=== PATIENT | female | born 1950 | race Caucasian/White ===

== ENCOUNTER 2022-03-03 07:16 | Outpatient (CLI) | payer MEDICARE, SELFPAY ==
--- NOTE | ~2022-03-03 | CT_ITS ---
Noncontrast CT scan of the left knee CLINICAL HISTORY: Preoperative planning for joint replacement, arthritis TECHNIQUE: Axial noncontrast imaging of the left knee was performed. Sagittal and coronal reformatted images were constructed. Dose reduction technique was used on this scan by utilizing automated expos ure control and iterative reconstruction technique. FINDINGS: No fracture or dislocation seen. There is severe medial compartment osteophytes, joint spac e narrowing, reactive sclerosis, and subchondral cystic change in the medial femoral condyle and medi al tibial plateau region. Prominent medial joint line osteophytes are present, with additional osteop hytes at the medial aspect of the intercondylar notch. Lateral compartment joint spaces relatively we ll-preserved, with osteophyte formation at the lateral joint line and the lateral margin of the inter condylar notch. There is mild patellofemoral spurring. There is a large ossified intra-articular loos e body in the suprapatellar pouch, measuring 2.5 cm in maximum diameter. Minimal joint effusion present. Small Thorpe cyst present. Visualized musculature unremarkable. Mild to moderate degenerative change at the posterior aspect of the left hip joint noted. Left ankle joint appears unremarkable. IMPRESSION: Tricompartmental osteoarthritis of the left knee, as detailed above. There is severe degenerative benjie nge of the medial compartment, and moderate degenerative change of the lateral and patellofemoral com partment. Large intra-articular loose body at the suprapatellar pouch, as detailed above. Minimal joint effusion and small Thorpe's cyst. Reviewed, dictated and finalized at [facility]. OPERATOR IMPRESSION: Tricompartmental osteoarthritis of the left knee, as detailed above. There is s evere degenerative change of the medial compartment, and moderate degenerative change of the lateral and patellofemoral compartment. Large intra-articular loose body at the suprapatellar pouch, as detailed above. Minimal joint effusion and small Thorpe's cyst.
[2022-03-03 08:41] LABS: Hematocrit 43.6 % (37.0-47.0); Hemoglobin 14.3 g/dL (12.0-15.0)
--- NOTE | 2022-03-03 08:58 | ECG_ITS ---
Measurements Intervals [place] Rate: 45 P: 42 DC: 178 QRS: -15 QRSD: 82 T: -1 QT: 423 QTc: 367 Interpretive Statements SINUS BRADYCARDIA LOW QRS VOLTAGE IN PRECORDIAL LEADS BORDERLINE T WAVE ABNORMALITY- INFERIOR LEADS ABNORMAL ECG NO PREVIOUS ECG AVAILABLE FOR COMPARISON Electronically Signed On 03-03-2022 10:09:29 QUALITY CONTROL LAB TECH by Sheldon Hensley D.O.
[2022-03-03 09:11] LABS: Albumin Level 4.6 g/dL (3.5-5.1); Estimated Glomerular Filt Rate > 60; Glucose 101 mg/dL (65-110)
[2022-03-03 10:38] LABS: Hemoglobin A1C 5.8 % (<5.7)
[2022-03-03 18:12] LABS: Urine Cotinine NEGATIVE
== END 2022-03-03 07:17 | disposition home or self-care (01) ==
PROVIDERS: PCP Internal Medicine; Visit Provider Orthopaedic Surgery
DX: M17.12 Unilateral primary osteoarthritis, left knee (principal); I10 Essential (primary) hypertension; R00.1 Bradycardia, unspecified
CPT/HCPCS: 73700; 80307; 82040; 82565; 82947; 83036; 85014; 85018; 93005

== ENCOUNTER 2022-05-04 11:36 | Outpatient (CLI) | payer MEDICARE, SELFPAY ==
[2022-05-04 13:16] LABS: Basophils Percent Auto 0.5 % (0.2-1.2); Eosinophils Absolute Auto 0.3 K/mm3 (0-0.3); Eosinophils Percent Auto 4.8 % (0-4.4); Hematocrit 44.4 % (37.0-47.0); Hemoglobin 14.3 g/dL (12.0-15.0); Immature Granulocyte Absolute 0.02 K/mm3 (0.00-0.031); Immature Granulocyte Percent A 0.3 % (0-0.5); Lymphocytes Absolute Auto 1.77 K/mm3 (0.9-3.2); Lymphocytes Percent Auto 30.4 % (18.3-44.2); Mean Corpuscular HGB Conc 32.2 g/dl (32-36); Mean Corpuscular Hemoglobin 30.5 pg (26-34); Mean Corpuscular Volume 94.7 fl (80-100); Mean Platelet Volume 11.1 fl (7.4-10.4); Monocytes Absolute Auto 0.5 K/mm3 (0.1-0.6); Monocytes Percent Auto 8.9 % (2.6-8.5); Neutrophils Absolute Auto 3.2 K/mm3 (1.3-6.7); Neutrophils Percent Auto 55.1 % (45.5-73.1); Platelet Count Result 231 k/mm3 (150-375); Red Blood Count 4.69 M/mm3 (4.2-5.4); Red Cell Distribution Width 13.9 % (11.5-14.5); White Blood Count 5.8 K/mm3 (4.5-10.0)
[2022-05-04 13:34] LABS: Albumin Level 4.7 g/dL (3.5-5.1)
[2022-05-04 13:35] LABS: Anion Gap 7 mmol/L (8-16); Blood Urea Nitrogen 24 mg/dL (7-17); Calcium 9.4 mg/dL (8.4-10.2); Carbon Dioxide 31 mmol/L (22-30); Chloride 102 mmol/L (98-107); Estimated Glomerular Filt Rate > 60; Glucose 93 mg/dL (65-110); Potassium 4.9 mmol/L (3.4-5.0); Sodium 140 mmol/L (137-145)
[2022-05-04 13:39] LABS: Urine Cotinine NEGATIVE
== END 2022-05-04 11:37 | disposition home or self-care (01) ==
LOC: ANHSURGERY 11:42
PROVIDERS: Anesthesiology; PCP Internal Medicine; Visit Provider Orthopaedic Surgery
DX: Z01.812 Encounter for preprocedural laboratory examination (principal); M17.12 Unilateral primary osteoarthritis, left knee; Z51.81 Encounter for therapeutic drug level monitoring
CPT/HCPCS: 36415; 80048; 80307; 82040; 85025; 87081

== ENCOUNTER 2022-05-30 00:17 | Day surgery (SDC) | payer MEDICARE, SELFPAY ==
[2022-05-04 12:09] VITALS: BP 129/76; PULSE 51; RESP 16; TEMP 37.2; O2SAT 98; BMI 33.7
--- NOTE | 2022-05-04 12:20 | PC.NURSE ---
Report to the Outpatient Waiting Room, entrance under the green pavilion located off [facility], at time _11:30AM on date ___05/23/22____. Planned Procedure Time: __1:30PM . Time changes happen often and if your time is changed the preop area will call you the afternoon before. - You and your visitor will be asked to self-screen and do not enter if you have any COVID symptoms. - Only one visitor is requested with a max of two and NO children visitors are allowed at this time. - The patient visitor may be requested to leave or wait in car when not with patient due to distancing restrictions. - A mask is optional within the hospital at this time. Patients may have clear liquids (water, carbonated beverages, clear teas, apple juice) until 3 hours prior to surgery with a maximum of 20 ounces. - No food from midnight until time of surgery Take the following medications with a SIP of water the morning of surgery: ___CITALOPRAM DO NOT STOP ANY OF YOUR OTHER PRESCRIPTION MEDICATIONS PRIOR TO SURGERY ?EXCEPT THE FOLLOWING Medications to discontinue per physician ___HOLD ALL VITAMINS/SUPPLEMENTS AND ALL NSAIDS(IBUPROFEN & ALEVE) 7 DAYS PRE-OP Date to take last dose___05/16/22 Please no make-up, nail croatian, hairspray, perfume, deodorant, or body powder the day of surgery. No jewelry (including any body piercings) or valuables the day of surgery, leave them at home. Please take a shower or bath the night before, or the morning of, surgery with an antibacterial soap. Wear comfortable, loose fitting clothing. Children are encouraged to wear pajamas. - Jewelry must be removed prior to entering the operating room. Rings and piercings that are not removed may be cut off. - The hospital will not accept responsibility for valuables. - Please leave all valuables, including medications, at home the day of surgery. If you are going home after surgery, a licensed funeral limousine driver must drive you home. - NO public transportation without another adult if you receive anesthesia. - We recommend that an adult stay with you for 24 hours following discharge. - We also recommend that you do not drive, make important decision, drink alcoholic beverages, or take any drugs that were not prescribed by your health care provider for at least 24 hours after your discharge time. Follow any additional instructions given to you from your surgeon. If you or anyone in your household have experienced Covid symptoms in the past week, please notify your surgeon or the nurse liaison at the phone number below for possible testing. Telephone instructions given to __PATIENT and asked if any additional questions and then verbalized understanding. Patient advised to call surgeon office or pre surgery nurse liaison [phone] if any additional questions.
--- NOTE | 2022-05-18 12:33 | PC.NURSE ---
Report to the Outpatient Waiting Room, entrance under the green pavilion located off [address], at time __8:30AM on date _05/30/22 . Planned Procedure Time: __10:30AM . NEW DATE/TIME- PATIENT RELAYS UNDERSTANDING Time changes happen often and if your time is changed the preop area will call you the afternoon before. - You and your visitor will be asked to self-screen and do not enter if you have any COVID symptoms. - Only one visitor is requested with a max of two and NO children visitors are allowed at this time. - The patient visitor may be requested to leave or wait in car when not with patient due to distancing restrictions. - A mask is optional within the hospital at this time. Patients may have clear liquids (water, carbonated beverages, clear teas, apple juice) until 3 hours prior to surgery with a maximum of 20 ounces. - No food from midnight until time of surgery Take the following medications with a SIP of water the morning of surgery: __CITALOPRAM DO NOT STOP ANY OF YOUR OTHER PRESCRIPTION MEDICATIONS PRIOR TO SURGERY ?EXCEPT THE FOLLOWING Medications to discontinue per physician __HOLD ALL VITAMINS/SUPPLEMENTS AND NSAIDS(IBUPROFEN & ALEVE) FOR 7 DAYS PRE-OP PER DR MONSON(PER PATIENT) Date to take last dose____05/23/22 Please no make-up, nail kinyarwanda, hairspray, perfume, deodorant, or body powder the day of surgery. No jewelry (including any body piercings) or valuables the day of surgery, leave them at home. Please take a shower or bath the night before, or the morning of, surgery with an antibacterial soap. Wear comfortable, loose fitting clothing. Children are encouraged to wear pajamas. - Jewelry must be removed prior to entering the operating room. Rings and piercings that are not removed may be cut off. - The hospital will not accept responsibility for valuables. - Please leave all valuables, including medications, at home the day of surgery. If you are going home after surgery, a licensed cat driver must drive you home. - NO public transportation without another adult if you receive anesthesia. - We recommend that an adult stay with you for 24 hours following discharge. - We also recommend that you do not drive, make important decision, drink alcoholic beverages, or take any drugs that were not prescribed by your health care provider for at least 24 hours after your discharge time. Follow any additional instructions given to you from your surgeon. If you or anyone in your household have experienced Covid symptoms in the past week, please notify your surgeon or the nurse liaison at the phone number below for possible testing. Telephone instructions given to __PATIENT and asked if any additional questions and then verbalized understanding. Patient advised to call surgeon office or pre surgery nurse liaison [phone] if any additional questions.
[2022-05-30] VITALS (10 sets, daily range): BP systolic 117–168; BP diastolic 54–86; PULSE 57–94; RESP 12–20; TEMP 36.4–37; O2SAT 96–100
--- NOTE | ~2022-05-30 | XR_ITS ---
EXAMINATION: [id number] DATE: 05/30/2022 14:18 INDICATION: Postoperative evaluation following left total knee arthroplasty. TECHNIQUE: Anteroposterior and lateral views of the left knee were obtained. COMPARISON: None. FINDINGS: Left total knee arthroplasty with patellar resurfacing appears well seated and in near anatomic align ment. No fractures identified. Expected postoperative subcutaneous and intra-articular gas. IMPRESSION: 1. Left total knee arthroplasty, negative for postoperative purposes. Reviewed, dictated and finalized at location A.
--- NOTE | 2022-05-30 07:30 | WPDHPUPDATE1 ---
History and Physical Update Update Date/Time: 05/30/22 07:30 History and Physical has been reviewed, including an updated exam of the patient. There are NO changes in the patient's condition. Risks, benefits, and alternatives have been discussed and questions answered. Patient agrees to proceed with procedure.
--- NOTE | 2022-05-30 08:58 | WPDANESEPPF ---
Anes - Initial Pre Proc Eval Procedure: Operation Date: 05/30/22 10:30 Proposed Procedures p Left Custom Total Knee Arthroplasty - Santy Salcido MD Date/Time: 05/30/22 08:58 Surgeon: Santy Salcido MD Pre Op Diagnosis: primary OA left knee Patient Data Age: 71 Gender: F Height: 1.65 m Weight: 90.7 kg Last Vital Signs Temp 37.2 C 05/04/22 12:09 Pulse 51 L 05/04/22 12:09 Resp 16 05/04/22 12:09 BP 129/76 05/04/22 12:09 Pulse Ox 98 05/04/22 12:09 O2 Del Method Room Air 05/04/22 12:09 Allergies Allergy/AdvReac Type Severity Reaction Status Date / Time No Known Allergies Allergy Unverified 05/30/22 08:42 Home Medications Medication Instructions Recorded Confirmed Type citalopram 10 mg tablet 10 mg PO QAM 01/02/22 05/30/22 History losartan 50 mg tablet 50 mg PO QPM 01/02/22 05/30/22 History triamterene 37.5 1 cap PO DAILY 01/02/22 05/30/22 History mg-hydrochlorothiazide 25 mg capsule biotin 5,000 mcg-lutein 10 mg 1 tablet PO BID 05/04/22 05/30/22 History tablet (Biotin Plus) cholecalciferol (vitamin D3) 10 10 mcg PO BID 05/04/22 05/30/22 History mcg (400 unit) capsule cyclosporine 0.05 % eye drops 1 drp EACH EYE Q12H 05/04/22 05/30/22 History (Restasis MultiDose) ibuprofen 200 mg capsule 400 mg PO Q6H PRN Pain 05/04/22 05/30/22 History multivitamin with iron (Daily 1 tablet PO DAILY 05/04/22 05/30/22 History Multiple Vitamins with Iron tablet) naproxen sodium 220 mg capsule 440 mg PO BID PRN Pain 05/04/22 05/30/22 History (Aleve) vitamin C 30 mg-zinc citrate 1.1 1 tablet PO BID 05/04/22 05/30/22 History mg-elderberry 25 mg chewable tablet (Sambucus Elderberry) aspirin 81 mg tablet,delayed 81 mg PO BID 14 days #28 tabs 05/30/22 Rx release oxycodone-acetaminophen 5 mg-325 1 - 2 tablet PO Q4-6H PRN pain #30 05/30/22 Rx mg tablet tabs prednisone 5 mg tablet 5 mg PO DAILY 3 weeks #21 tabs 05/30/22 Rx Patient hx anesthesia problems: none Family hx anesthesia problems: none Results Review: All pre-operative results and documents have been reviewed as part of the pre-operative evaluation. [facility] Past Medical History Medical History (Updated 05/30/22 @ 09:01 by Declan Carpenter DO) Anxiety History of fracture of patella (~2020) Rt - Treated w/Long Brace Hypertension Osteoarthritis Surgical History Surgical History (Updated 05/30/22 @ 09:01 by Declan Carpenter DO) History of blepharoplasty (~05/16/21) [place] Upper Lids History of hysterectomy Family History Family History Mother Cancer Father Heart problem Social History Social History Smoking status: Never smoker Alcohol intake: never Substance use: never Lack of Transportation: No Lack of Food: Never True Current Housing: I Have Housing Concerned About Future Housing: No Difficulty Paying Gas/Electric Bills: No Difficulty Paying for Meds: No Currently Unemployed: No Education: High School Diploma/GED Difficulty w/ Childcare or Family Care: No Living arrangements: with family Additional living arrangements comments: [facility]USB Spiritual care concerns: No Anes - Eval Final PreProcedure Day of Procedure 05/30/22 08:58 Patient weight: obese Heart: regular rate and rhythm Lungs: clear to auscultation Airway: Mallampati scale class II Neurological: alert and oriented Last oral intake: >/= 8 hours ASA classification: III Emergent: no Anesthetic plan: proceed Anesthesia type and monitoring: general LMA and standard monitoring Results Review: All pre-operative results and documents have been reviewed as part of the pre-operative evaluation. Informed Consent: The patient's anesthetic plan and its attendant risks and benefits were discussed with the patient/family/POA. Questions were solicited and answe
[2022-05-30] MEDS: LACTATED RINGERS 1,000 ML 30 ML IV CONT ×2 (09:00→13:42)
[2022-05-30] MEDS: TRANEXAMIC ACID 1,000MG/ISO100 1,000 MG/100 ML BAG 200 MG IVPB (09:04)
[2022-05-30] MEDS: ACETAMINOPHEN 500 MG TABLET 1000 MG PO ×2 (09:04→18:38)
--- NOTE | 2022-05-30 09:11 | WPDANESPNB ---
Anes - Peripheral Nerve Block Date/Time: 05/30/22 09:11 I have discussed with the patient/family/POA the placement of a peripheral nerve block for post-operative pain management, including associated risks, benefits, complications, and side effects. Alternative methods of post-operative analgesia were detailed. Questions were solicited and answers provided to the satisfaction of the patient/family/POA. Time-Out: A pre-procedural Time-Out was completed immediately before starting the procedure and confirmed: Patient Identification, Site, Procedure, Patient Position and the Availability of Requisite Equipment. Clinical Indications: Acute post-operative pain management requested by the operative surgeon. Nerve Block Insertion Note Anes-nerve block: adductor canal left Patient position: supine Skin prep: chlorhexidine Needle: 22 gauge, stimulating, insulated echogenic needle. Needle length: 80 mm Technique: ultrasound Injectate: bupivacaine 0.5% with epi 5 mcg/ml (30cc - no epi) Observations: tolerated well Complications: none Procedure start time:: 1103 Procedure end time:: 1106
[2022-05-30] MEDS: ceFAZolin 2 GM/D5W 50 ML 2 GM/50 ML BAG IVPB ×2 (11:08→18:39)
[2022-05-30] MEDS: GENTAMICIN BONE CEMENT REFOBACIN 1 EACH TOPICAL (12:19)
--- NOTE | 2022-05-30 15:04 | W.PM.PROC2 ---
Procedure Note - Detailed Date of Procedure 05/30/22 Pre-op Diagnosis primary OA left knee Post-op Diagnosis Same Procedure Performed Total knee arthroplasty, left. Surgeon Santy Salcido MD Anesthesia General and Regional (Subsartorial block.) Findings Large loose body removed from the superior pouch approximately 3 cm in diameter. Extensive degenerative changes as observed on the CT scan planning. Moderate medial release required. Slight PCL release. Description of Procedure Preoperative antibiotics were given. The limb was prepped and draped in the usual sterile fashion with a well-padded tourniquet high on the thigh. The limb was exsanguinated and the tourniquet inflated to 300 mmHg. A longitudinal incision was created just medial to the patella. A trivector approach to the knee was performed. Arthrotomy was taken down through the joint capsule. No significant releases were initially taken. The femur was exposed and the F1 jig was applied. The coring tool was used to remove the cartilage for the F2 jig to sit flush with the bone. The jig was pinned and the distal cut carefully taken. Caliper measurements confirmed appropriate bony resections according to the preoperative templated plan. The F4 cutting jig for the femur was applied, at the standard rotation. The AP and anterior chamfer cuts were taken. The F5 jig was applied and the posterior chamfer cuts were taken. The tibia was prepared using the T1 jig, after removing cartilage for the jig contact points. Proper alignment was checked with the alignment wilberto. The tibia was cut using the T1u guide. Gap balancing was performed. Gap measurements were taken and the knee was trialed. Excellent alignment and soft tissue balancing was confirmed. The posterior cruciate ligament was recessed along the proximal tibia. The patella was cut for resurfacing. Three lug holes were drilled. Meniscal remnants were removed. The trial components were assembled. Excellent range of motion and proper soft tissue balancing were confirmed throughout the full range of motion. Patellar tracking was excellent. The knee was copiously irrigated periodically throughout the procedure. The real implants were cemented into position. Excess cement was carefully removed. The wound was closed in layers with interrupted #1 Vicryl suture, #2 strata fix suture, 2-0 strata fix suture, 3-0 strata fix suture. Steri-Strips placed on the skin with the knee flexed. Sterile bulky dressing applied. The patient was brought to the recovery room in stable condition. There were no complications. Implants Conform[employer] Imprint total knee arthroplasty. Cemented. Cruciate retaining. 7 mm insert. 38 mm oval patella. Estimated Blood Loss 100 Drains No Complications No immediate complications Condition Stable Disposition PACU [facility] Billing Surgery - Charge Forward: Surgery Billing
--- NOTE | 2022-05-30 15:24 | ADMGEN ---
This patient, Enedina Hankins, was admitted to 2 Medical Room 260-. Patient/family oriented to hospital policies and general routines including ID bracelet, bed and alarms, visiting hours, pain management, procedures, bathroom and other care routines, personal items, smoking policy, room service/diet, and visiting hours. Information on how to activate the Rapid Response Team has been discussed. Patient/Family are encouraged to report perceived risks to care and to ask questions if they do not understand what they are told or what they should do.
[2022-05-30] MEDS: LOSARTAN POTASSIUM 50 MG TABLET PO (18:39)
[2022-05-30] MEDS: oxyCODONE HCL (*CRX) 5 MG TAB IR PO (18:39)
[2022-05-30] MEDS: ASPIRIN 81 MG ENTERIC TABLET PO (18:40)
[2022-05-30] MEDS: SENNA/DOCUSATE SODIUM TABLET 2 TAB PO (18:40)
[2022-05-30] MEDS: MELOXICAM 7.5 MG TABLET PO (18:40)
[2022-05-30] MEDS: ONDANSETRON INJ 4 MG/2 ML VIAL IV PUSH (18:49)
[2022-05-30] MEDS: FAMOTIDINE 20 MG TABLET PO (22:16)
[2022-05-31 00:09] VITALS: BP 149/67; PULSE 62; RESP 20; TEMP 36.6; O2SAT 100
[2022-05-31] MEDS: ACETAMINOPHEN 500 MG TABLET 1000 MG PO ×2 (00:33→06:22)
[2022-05-31] MEDS: ceFAZolin 2 GM/D5W 50 ML 2 GM/50 ML BAG IVPB ×2 (03:16→11:23)
[2022-05-31 04:39] VITALS: BP 119/66; PULSE 74; RESP 20; TEMP 36.1; O2SAT 100
[2022-05-31 05:42] LABS: Anion Gap 10 mmol/L (8-16); Blood Urea Nitrogen 22 mg/dL (7-17); Calcium 9.1 mg/dL (8.4-10.2); Carbon Dioxide 26 mmol/L (22-30); Chloride 100 mmol/L (98-107); Estimated CRCL calculation 73 ml/min; Estimated Glomerular Filt Rate > 60; Glucose 137 mg/dL (65-110); Potassium 4.2 mmol/L (3.4-5.0); Sodium 136 mmol/L (137-145)
[2022-05-31 05:43] LABS: Basophils Percent Auto 0.2 % (0.2-1.2); Hemoglobin 12.6 g/dL (12.0-15.0); Immature Granulocyte Absolute 0.04 K/mm3 (0.00-0.031); Immature Granulocyte Percent A 0.4 % (0-0.5); Lymphocytes Absolute Auto 0.81 K/mm3 (0.9-3.2); Lymphocytes Percent Auto 7.4 % (18.3-44.2); Mean Corpuscular HGB Conc 31.5 g/dl (32-36); Mean Corpuscular Hemoglobin 30.4 pg (26-34); Mean Corpuscular Volume 96.4 fl (80-100); Mean Platelet Volume 11.5 fl (7.4-10.4); Monocytes Absolute Auto 0.7 K/mm3 (0.1-0.6); Monocytes Percent Auto 6.6 % (2.6-8.5); Neutrophils Absolute Auto 9.4 K/mm3 (1.3-6.7); Neutrophils Percent Auto 85.4 % (45.5-73.1); Platelet Count Result 198 k/mm3 (150-375); Red Blood Count 4.15 M/mm3 (4.2-5.4); Red Cell Distribution Width 14.2 % (11.5-14.5)
--- NOTE | 2022-05-31 07:51 | PM.DS ---
DS: Admitting Diagnosis Discharge Date 05/31/22 Admitting Diagnosis OA knee Left DS: Discharge Diagnosis Discharge Diagnosis (1) Status post total left knee replacement: Code(s): Z96.652 - Presence of left artificial knee joint Status: Acute Assessment and Plan: Postop day 1: Left total knee arthroplasty. Patient tolerated procedure well. No complications. Pain manageable with pain medication. No numbness or tingling. We had a lengthy discussion regarding postoperative wound care, limitations, expectations, and exercises. Patient shows good understanding. She has had initial physical therapy and is tolerating it well. DVT prophylaxis: 81 mg baby aspirin b.i.d. for 14 days. Pain medication: Percocet. Prednisone. Ibuprofen. Patient has followup appointment with Dr. Salcido in 3 weeks. DS: Summary Hospital Course Reason for hospitalization: Total knee arthroplasty Hospital Course: Patient tolerated procedure well. Has had initial PT/OT. Status at Discharge Functional status at discharge: uses cane/walker Overall status at discharge: patient is progressing back to baseline Time Spent with Patient Time attestation: Total time spent providing and/or coordinating discharge services: Exam Narrative: 71-year-old overweight female. Resting comfortably in chair. Alert and oriented x3. No acute distress. Wearing compression socks bilaterally. Dressing intact without drainage. Moderate swelling. No ecchymosis. No erythema. No hematoma. Range of motion limited due to pain. Calf nontender. Neurologic status intact. No varicosities. Distal pulses palpable. DS: Data Data Completed and Pending Labs on day of discharge: Labs from last 24 hours 05/31/22 05/31/22 05/30/22 04:52 04:52 09:01 WBC 11.0 H RBC 4.15 L Hgb 12.6 Hct 40.0 MCV 96.4 MCH 30.4 MCHC 31.5 L RDW 14.2 Plt Count 198 MPV 11.5 H Immature Gran % (Auto) 0.4 Neut % (Auto) 85.4 H Lymph % (Auto) 7.4 L [place] % (Auto) 6.6 Eos % (Auto) 0.0 Baso % (Auto) 0.2 Lymph # (Auto) 0.81 L [place] # (Auto) 0.7 H Eos # (Auto) 0.0 Baso # (Auto) 0.0 Abs Immat Gran (auto) 0.04 H Absolute Neuts (auto) 9.4 H Absolute Nucleated RBC 0.0 Nucleated RBC % 0.0 Sodium 136 L Potassium 4.2 Chloride 100 Carbon Dioxide 26 Anion Gap 10 BUN 22 H Creatinine 0.70 Estim Creat Clear Calc 73 Estimated GFR > 60 Glucose 137 H Calcium 9.1 Blood Type O Positive Antibody Screen Negative Discharge Plan Discharge Patient Disposition: Home, Self-Care Discharge Instructions: See green instruction sheets Stand Alone Forms: General Discharge Instructions Follow-up/Referrals: Alda Carlson PA [Physician [employer]isher Polisher] - Discharge Medications: New aspirin 81 mg tablet,delayed release (DR/EC) 81 mg PO BID 14 Days Qty: 28 0RF prednisone 5 mg tablet 5 mg PO DAILY 21 Days Qty: 21 0RF oxycodone-acetaminophen 5-325 mg tablet 1 - 2 tablet PO Q4-6H MDD 6 PRN (Reason: pain) Qty: 30 0RF Continued Sambucus Elderberry 30-1.1-25 mg tablet,chewable 1 tablet PO BID Biotin Plus 5,000 mcg- 10 mg tablet 1 tablet PO BID multivitamin with iron [Daily Multiple Vitamins/Iron] Tablet 1 tablet PO DAILY cholecalciferol (vitamin D3) 10 mcg (400 unit) capsule 10 mcg PO BID ibuprofen 200 mg capsule 400 mg PO Q6H PRN (Reason: Pain) Restasis MultiDose 0.05 % drops 1 drp EACH EYE Q12H losartan 50 mg tablet 50 mg PO QPM triamterene-hydrochlorothiazid 37.5-25 mg capsule 1 cap PO DAILY citalopram 10 mg tablet 10 mg PO QAM naproxen sodium [Aleve] 220 mg Capsule 440 mg PO BID PRN (Reason: Pain)
[2022-05-31] MEDS: predniSONE 5 MG TABLET PO (08:19)
[2022-05-31] MEDS: ASPIRIN 81 MG ENTERIC TABLET PO (08:19)
[2022-05-31 08:20] VITALS: BP 135/57; PULSE 58
[2022-05-31] MEDS: CITALOPRAM HYDROBROMIDE 10 MG TABLET PO (08:20)
[2022-05-31] MEDS: SENNA/DOCUSATE SODIUM TABLET 2 TAB PO (08:20)
[2022-05-31] MEDS: TRIAMTERENE 37.5 MG/HCTZ 25 MG (MAXZIDE) TABLET 1 TAB PO (08:21)
[2022-05-31] MEDS: FAMOTIDINE 20 MG TABLET PO (08:21)
[2022-05-31] MEDS: MELOXICAM 7.5 MG TABLET PO (08:21)
[2022-05-31] MEDS: oxyCODONE HCL (*CRX) 5 MG TAB IR PO (08:59)
[2022-05-31 09:37] VITALS: O2SAT 98
--- NOTE | 2022-05-31 09:54 | P.PNAN_ITS ---
Anes - Prog Note Post-Op Date/Time: 05/31/22 09:54 Cardiovascular status: normal Respiratory status: normal Airway patency: baseline Mental status: baseline Post-Op hydration status: normal Vital Signs: Last Vital Signs Temp 36.1 C L 05/31/22 04:39 Pulse 58 L 05/31/22 08:20 Resp 20 05/31/22 04:39 BP 135/57 L 05/31/22 08:20 Pulse Ox 98 05/31/22 09:37 O2 Del Method Room Air 05/31/22 09:37 O2 Flow Rate 6 05/30/22 14:10 Pain Score (VAS): 2 I/O: Intake & Output 05/30/22 05/31/22 05/31/22 23:59 07:59 15:59 Intake Total 290 440 0 Output Total 0 Balance 290 440 0 Laboratory Tests 05/31/22 04:52 05/31/22 04:52 05/30/22 05/31/22 05/31/22 09:01 04:52 04:52 WBC 11.0 H RBC 4.15 L Hgb 12.6 Hct 40.0 MCV 96.4 MCH 30.4 MCHC 31.5 L RDW 14.2 Plt Count 198 MPV 11.5 H Immature Gran % (Auto) 0.4 Neut % (Auto) 85.4 H Lymph % (Auto) 7.4 L [place] % (Auto) 6.6 Eos % (Auto) 0.0 Baso % (Auto) 0.2 Lymph # (Auto) 0.81 L [place] # (Auto) 0.7 H Eos # (Auto) 0.0 Baso # (Auto) 0.0 Abs Immat Gran (auto) 0.04 H Absolute Neuts (auto) 9.4 H Absolute Nucleated RBC 0.0 Nucleated RBC % 0.0 Sodium 136 L Potassium 4.2 Chloride 100 Carbon Dioxide 26 Anion Gap 10 BUN 22 H Creatinine 0.70 Estim Creat Clear Calc 73 Estimated GFR > 60 Glucose 137 H Calcium 9.1 Blood Type O Positive Antibody Screen Negative Post-procedural complaints: none Patient Feedback: Patient satisfied with anesthetic care.
== END 2022-05-31 12:23 | disposition home or self-care (01) ==
LOC: ANHSURGERY 08:37 → ANH2MED 14:57
PROVIDERS: Physician Assistant Surgical; PCP Internal Medicine; Visit Provider Orthopaedic Surgery
PROC: (CPT 27447; principal; 2022-05-30 10:30)
DX: M17.12 Unilateral primary osteoarthritis, left knee (principal); G89.18 Other acute postprocedural pain; I10 Essential (primary) hypertension; F41.9 Anxiety disorder, unspecified; Z79.82 Long term (current) use of aspirin; E66.9 Obesity, unspecified; Z68.33 Body mass index [BMI] 33.0-33.9, adult
CPT/HCPCS: 27447; 64447; 36415; 73560; 80048; 80307; 82040; 85025; 86850; 86900; 86901; 87081; 97110; 97116; 97161; 97165; 97530; 97535; A9270; C1713; C1776; J0171; J0690; J1100; J1170; J1885; J2250; J2270; J2405; J2704; J2795; J3010; J7120; J7512